=== PATIENT | female | born 1930 | race Caucasian/White ===

== ENCOUNTER → 2017-10-27 | Outpatient (CLI) | payer OTHER ==
[~2017-10-27] VITALS: Ht 167.6 cm; Wt 51.3 kg
[~2017-10-27] MED LIST: ALEVE220 M1 PO; ASPIRIN81 M2 PO; HYDROCODONE-AP1 EAC6 PO; MOBIC7.5 MG PO; TYLENOL325 MG PO; VITAMIN D1000 UNI2 PO; ZOCOR20 MG PO
--- NOTE | ~2017-10-27 | HPC ---
[facility] [place] [address] PAIN MANAGEMENT CONSULTATION Name: CAT CUENCA V Room #: REG MEGANAleida Klein#: [id number] Admission: 10/27/17 Attend Phys: Manohar Chiang DO Discharge: Date of : 30 Report #: [id number] THIS REPORT FOR: //name// CC: Manohar Godoy MD REFERRING PHYSICIAN: Jose Manuel Godoy MD HISTORY OF PRESENT ILLNESS: As you know, the patient is a very pleasant 86-year-old female who has been referred to our service for chronic low back pain and right shoulder pain. The patient was recently seen by Dr. Godoy on 10/14/2017, for evaluation for a known brain tumor. The patient indicates his brain tumor is a meningioma and was being monitored. During that conversation, the patient had indicated some concern of low back pain, she was having difficulty with her current pain physician, she was referred to our clinic to discuss options for treatment and to discuss opportunities of therapy that we may have available. The patient today indicates pain level of a 7/10, states her pain is exacerbated with lifting, climbing stairs, walking and sitting, improves with previous injection therapy. She indicates daily average of pain is anywhere from 0-8/10 depending on activity, 10/10 at its worse. She describes the pain as periodic and intermittent, describes the pain as cramping, aching, and sharp. She is able to localize pain directly over what appears to be the right sacroiliac joint and facet joints of the lumbar spine. She has been referred to our service to discuss options for treatment. PAST MEDICAL HISTORY: 1. Basal cell carcinoma. 2. Chronic low back pain. 3. Dyslipidemia. PAST SURGICAL HISTORY: 1. Cataract surgery. 2. Appendectomy. 3. Thyroidectomy. 4. Hysterectomy. SOCIAL HISTORY: The patient denies tobacco use. Denies IV or illicit drug use. She is retired. She is . She has 1 son who is present in room today. She is a retired nurse by [employer] ALLERGIES: No known drug allergies. CURRENT MEDICATIONS: Hydrocodone/acetaminophen 5/325 one tab every 4 hours p.r.n. for pain, naproxen sodium 220 mg every 8 hours, aspirin 81 mg per day, cholecalciferol 1000 units per day, simvastatin 20 mg per day. [address] [address] PAIN MANAGEMENT CONSULTATION Name: CAT CUENCA Juana Room #: REG DEMIAN Klein#: [id number] Admission: 10/27/17 Attend Phys: Manohar Chiang DO Discharge: Date of : 30 Report #: [id number] IMAGING: MRI lumbar spine obtained on 10/01/2017, shows moderate intervertebral disk degenerative changes, small posterior disk protrusion at L1-L2, no significant central canal or neural foraminal stenosis, mild bilateral facet arthrosis. L2-L3, severe intervertebral disk changes, small posterior disk protrusion, no significant central canal or neural foraminal stenosis, small anterior osteophytes seen at this level secondary to degenerative endplate changes. L3-L4, severe intervertebral disk degenerative changes, mild bilateral facet arthrosis, mild central canal stenosis, no significant neural foraminal stenosis. There are degenerative changes of facet joints noted at this level. L4-L5, severe intervertebral disk changes, partial fusion across the right lateral area secondary to osteophyte formation, no significant disk disease, no spinal canal stenosis, mild bilateral facet arthrosis. L5-S1, small posterior disk bulge, mild bilateral facet arthrosis. No significant central canal or neural foraminal stenosis. PHYSICAL EXAMINATION: VITAL SIGNS: Blood pressure 146/63, pulse 70, respiratory rate 12 and unlabored, the patient is 100% on room air, height 5 feet 6 inches tall, weight 113 pounds, and BMI calculated 18.2. GENERAL: Well-developed, well-nourished, well-hydrated, thin 86-year-old female, appears her stated age, she is placing current pain score at 7/10. HEENT: Normocephalic, atraumatic. Pupils are equal, round, and reactive to light. Extraocular muscles are intact. NEUROLOGIC: Speech is normal for patient. She is deemed an excellent historian. LUNGS: Clear. No wheezing, rhonchi, or rales. CARDIOVASCULAR: Regular. No appreciable gallop. No rub. ABDOMEN: Soft, nontender, and nondistended. Normoactive bowel sounds. EXTREMITIES: Show no clubbing, no cyanosis, and no edema. MUSCULOSKELETAL: Lower extremity strength appears equal and symmetrical 5/5, intact to light touch from L1 through S2 dermatomes. Gait is normal. Stance is forward flexed lumbar spine, there is noted kyphosis and mild scoliosis. There is palpatory tenderness over the paraspinal musculature of lower lumbar spine, no spinous process tenderness. Deep palpation over the SI joint on the right causes intensification of pain with radiation to the patient's typical distribution of symptoms. Seated straight leg raising negative. Supine straight leg raising negative. Becka's test is positive only for SI joint dysfunction on the right, negative left. Ankle clonus negative. Babinski is negative. ASSESSMENT: 1. Right sacroiliac joint dysfunction. 2. 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 3. Myofascial pain. 4. Chronic left shoulder pain. 5. Chronic intractable pain. [facility] [address] [place] [address] PAIN MANAGEMENT CONSULTATION Name: CAT CUENCA V Room #: REG DEMIAN Klein#: [id number] Admission: 10/27/17 Attend Phys: Manohar Chiang DO Discharge: Date of : 30 Report #: [id number] PLAN: 1. Based on today's physical exam, history the patient was provided, the description the patient uses in regards to pain as well as the location of symptoms, likely source of the patient's pain is the right sacroiliac joint. Deep palpation of this area causes the patient's typical pain distribution and intensity. This is also confirmed with a Becka's test, which shows no intrinsic right hip pathology, but does show SI joint dysfunction and pain generated from the area. We discussed with the patient she also suffers from facet arthropathy of the lower lumbar spine, it is fairly profound at the L3-L4 and L4-L5 level and may be contributing some to her axial back pain, but the main generator today appears to be the SI joint. We also discussed that the patient has periodic bilateral lower extremity cramping, which may be due to her spinal stenosis, though the MRI shows only mild stenosis, which is pretty impressive in an 86-year-old female. We discussed with the patient treatment options for SI joint dysfunction today as this appears to be the main pain generator. We discussed physical therapy, stretching exercise, core strengthening, we discussed medication management with addition of a more consistent nonsteroidal anti-inflammatory dosing, we discussed SI joint injections as a treatment option, and we discussed surgical fusion of the joint. After reviewing risks and benefits of all proposed treatment options, the patient chose to begin with the SI joint injection on the right. 2. 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 Apprehension test is negative, I do not perceive any labral issues in the right shoulder or left shoulder. We would recommend conservative medication management for this. We discussed the possibility of adding topical agents such as Voltaren gel or Pennsaid, we did not have samples of this medication today and the cost of this medication can be quite high. I would recommend the patient start with the generic nonsteroidal anti-inflammatory, determine if efficacy is noted with this medication. The patient was amenable, she was advised of the risks with a nonsteroidal anti-inflammatory, states she did wish to proceed with a trial. 3. The patient was provided a prescription of Meloxicam 7.5 mg 1 tab p.o. b.i.d., I have given the patient #60 tablets, 2 refills. She is to watch for dyspepsia, worsening of blood pressure, lower extremity edema with use of the medication. If any side effects that are concerning to the patient, she is to contact the clinic after discontinuing its use. 4. We will see the patient back in followup visit in approximately 3 weeks. At that time, we will discuss her ongoing shoulder pain and also to determine the efficacy of today's injection and determine if repeating the injection would be of benefit. 5. We wish to thank Dr. Godoy for the referral of the patient to our clinic. We will keep you apprised of her response to treatment as we address her back pain issues. Again, we wish to thank you for the opportunity to see the patient in consultation. [facility] [address] [place] [address] PAIN MANAGEMENT CONSULTATION Name: CAT CUENCA V Room #: REG DEMIAN Klein#: [id number] Admission: 10/27/17 Attend Phys: Manohar NguyenKeagan Андрей, Discharge: Date of : 30 Report #: [id number] PROCEDURE NOTE DESCRIPTION OF PROCEDURE: Right sacroiliac joint injection under fluoroscopic guidance. This is the first procedure of the first series that the patient is undergoing. After obtaining written consent, the patient was taken back to the fluoroscopy suite and placed in a prone position with a pillow under the pelvis to decrease the lumbar lordosis. The skin of the gluteal-sacral area overlying the right sacroiliac joint was prepped and draped in an aseptic fashion. A medial to lateral oblique projection allowed separation of the anterior and posterior branches of the joint space. The skin and subcutaneous tissue overlying the target site of injection was anesthetized using 3 mL of 1% lidocaine. A 22-gauge 3-1/2-inch needle with a bent tip was directed into the inferior aspect of the sacroiliac joint using a posterior approach. A "giving way" at the needle hub was noted once the dorsal sacroiliac and interosseous ligaments were engaged. After negative aspiration for heme, a total of 0.4 mL of Omnipaque was injected, outlining the coin-shaped inferior recess of the joint. Provocation responses consisting of intense buttock pain were negative. After negative aspiration for heme, 3 mL of a solution containing 1 mL 40 mg per mL, 40 mg total triamcinolone, 2 mL of bupivacaine 0.5% was slowly injected. The needle was then retracted approximately long-term and the needle track was flushed with 1 mL of 1% lidocaine. Needle was then removed. A sterile bandage was placed over the injection site. There were no new sensory deficits present in the lower extremities. The heart rate, pulse oximetry and blood pressure were continuously monitored after the procedure. There were no apparent complications. The patient tolerated the procedure well and was carefully escorted to the recovery room in stable condition. The VAS was 7/10 before the procedure and 4/10 ten minutes after the procedure. After meeting discharge criteria, the patient was discharged home. <ELECTRONICALLY SIGNED> By: Manohar Chiang DO 10/28/17 0739 [id number] Manohar Chiang DO /nt
[2017-10-27 09:53] VITALS: BP 146/63
== END | disposition home or self-care (01) ==
LOC: PAIN 07:04
DX: M53.3 Sacrococcygeal disorders, not elsewhere classified (principal); M12.88 Other specific arthropathies, not elsewhere classified, other specified site; M79.1 Myalgia; M25.512 Pain in left shoulder; G89.29 Other chronic pain; Z79.891 Long term (current) use of opiate analgesic; Z79.82 Long term (current) use of aspirin; Z79.899 Other long term (current) drug therapy; Z90.49 Acquired absence of other specified parts of digestive tract; Z90.710 Acquired absence of both cervix and uterus; Z98.890 Other specified postprocedural states; Z98.49 Cataract extraction status, unspecified eye; E78.5 Hyperlipidemia, unspecified; Z85.828 Personal history of other malignant neoplasm of skin

== ENCOUNTER → 2017-11-17 | Outpatient (CLI) | payer OTHER ==
[~2017-11-17] VITALS: Ht 167.6 cm; Wt 50.3 kg
--- NOTE | ~2017-11-17 | HPC ---
[facility] [place] [address] PAIN MANAGEMENT CONSULTATION Name: CAT CUENCA V Room #: REG [facility] Magen.#: [id number] Admission: 11/17/17 Attend Phys: Jeffery Chiang DO Discharge: Date of : 30 Report #: [id number] THIS REPORT FOR: //name// CC: JEFFERY Richard MD DATE OF SERVICE: 11/17/2017 CHIEF COMPLAINT: Right low back and buttock pain. HISTORY OF PRESENT ILLNESS: As you know, the patient is a very pleasant 86-year-old female who returns today in followup visit indicating good efficacy with the SI joint injection provided at last visit. She reports about 50% improvement in overall pain. Despite this 50% improvement, the patient is reporting pain level of 6/10 today. She returns per the request of her neurosurgeon to undergo the second in series of right SI joint injections in hopes of improving pain further. The patient denies any changes in medical history since our last visit. She is not on any blood thinners concerning for this procedure today. ALLERGIES: No known drug allergies. CURRENT MEDICATIONS: Meloxicam, hydrocodone, naproxen, aspirin, cyanocobalamin, simvastatin. SOCIAL HISTORY: The patient denies tobacco, denies IV or illicit drug use. She is retired. She is unaccompanied today. PHYSICAL EXAMINATION: VITAL SIGNS: Blood pressure 138/63, pulse 71, respiratory rate 14 and unlabored. The patient is 99% on room air. Height 5 feet 6 inches tall, weight 110.8 pounds, BMI calculated 17.9. GENERAL: Well-developed, well-nourished, well-hydrated, thin, 86-year-old female appearing her stated age. Pain is rated around 6/10. HEENT: Normocephalic, atraumatic. Pupils equal, round, reactive to light. EXTREMITIES: Show no clubbing, no cyanosis, no edema. MUSCULOSKELETAL: Lower extremity strength is symmetrical 5/5, intact to light touch from L1 through S2 dermatomes. Gait appears normal, stance slightly forward flexed lumbar spine. There is deep palpation tenderness over the SI joint on the right compared to left. ASSESSMENT: 1. Right sacroiliac joint dysfunction. 2. 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 [address] [address] PAIN MANAGEMENT CONSULTATION Name: CAT CUENCA V Room #: REG DEMIAN Klein#: [id number] Admission: 11/17/17 Attend Phys: Jeffery Chiang DO Discharge: Date of : 30 Report #: [id number] 3. Myofascial pain. 4. Chronic intractable pain. PLAN: 1. The patient returns today in followup visit per the request of her neurosurgeon, Dr. Jose Manuel Godoy to undergo the 2nd SI joint injections on the right side. The patient received good benefit, about 50% improvement in overall pain with this injection. She has returned today hoping to see similar improvement today. She has been advised risks and benefits of the procedure, states she understood and wished to proceed. 2. We will see the patient back in followup visit on an as needed basis. We have requested the patient return to see Dr. Godoy in regards to potential surgical options depending on the efficacy of today's second in the series of SI joint injections. The patient will make the appointment at her earliest convenience. 3. We will see the patient back in followup visit for future interventional treatments as requested. PROCEDURE NOTE DESCRIPTION OF PROCEDURE: Right sacroiliac joint injection under fluoroscopic guidance. This is the second procedure of the first series that the patient is undergoing. After obtaining written consent, the patient was taken back to the fluoroscopy suite and placed in a prone position with a pillow under the pelvis to decrease the lumbar lordosis. The skin of the gluteal-sacral area overlying the right sacroiliac joint was prepped and draped in an aseptic fashion. A medial to lateral oblique projection allowed separation of the anterior and posterior branches of the joint space. The skin and subcutaneous tissue overlying the target site of injection was anesthetized using 3 mL of 1% lidocaine. A 22-gauge, 3-1/2 inch needle with a bent tip was directed into the inferior aspect of the sacroiliac joint using a posterior approach. A ____ giving way ____ at the needle hub was noted once the dorsal sacroiliac and interosseous ligaments were engaged. After negative aspiration for heme, a total of 0.3 mL of Omnipaque was injected, outlining the coin-shaped inferior recess of the joint. Provocation responses consisting of intense buttock pain were negative. After negative aspiration for heme, 3 mL of a solution containing 1 mL 40 mg total triamcinolone, 2 mL of bupivacaine 0.5% was slowly injected. The needle was then retracted approximately chcf and the needle track was flushed with 1 mL of lidocaine 1%. Needle was then removed. A sterile bandage was placed over the injection site. There were no new sensory deficits present in the lower extremities. The heart rate, pulse oximetry and blood pressure were continuously monitored [address] [address] PAIN MANAGEMENT CONSULTATION Name: CAT CUENCA V Room #: REG DEMIAN Klein#: [id number] Admission: 11/17/17 Attend Phys: Jeffery Chiang DO Discharge: Date of : 30 Report #: [id number] after the procedure. There were no apparent complications. The patient tolerated the procedure well and was carefully escorted to the recovery room in stable condition. The VAS was 6/10 before the procedure and 0/10 ten minutes after the procedure. After meeting discharge criteria, the patient was discharged home. <ELECTRONICALLY SIGNED> By: Jeffery Chiang DO 11/25/1702 1152 [id number] Jeffery Chiang DO /nt
[2017-11-17 08:59] VITALS: BP 138/63
== END | disposition home or self-care (01) ==
LOC: PAIN 06:52
DX: M53.3 Sacrococcygeal disorders, not elsewhere classified (principal); M46.96 Unspecified inflammatory spondylopathy, lumbar region; M79.1 Myalgia; G89.29 Other chronic pain; Z79.82 Long term (current) use of aspirin; Z79.891 Long term (current) use of opiate analgesic; Z79.899 Other long term (current) drug therapy

== ENCOUNTER → 2018-08-31 | Outpatient (CLI) | payer OTHER ==
[~2018-08-31] VITALS: Ht 167.6 cm; Wt 52.5 kg
--- NOTE | ~2018-08-31 | HPC ---
[address] [address] PAIN MANAGEMENT CONSULTATION Name: CAT CUENCA V Room #: REG MEGANAleida Klein#: [id number] Admission: 08/31/18 Attend Phys: Manohar Chiang DO Discharge: Date of : 30 Report #: [id number] THIS REPORT FOR: //name// CC: Manohar Godoy M.D. DATE OF SERVICE: 08/31/2018 CHIEF COMPLAINT: Low back pain, right lower extremity pain with paresthesias. HISTORY OF PRESENT ILLNESS: As you know, the patient is a very pleasant 87-year-old female returning today in followup visit, requesting to undergo lumbar epidural injection under fluoroscopic guidance to address low back pain and right lower extremity pain with paresthesias. The patient places pain score today at 1-10/10; states pain begins in low back, radiates all the way down the right leg to her foot. She was originally referred to our service to discuss epidural injections. She has done very well with SI joint injections to address sacroiliac joint dysfunction, but now is experiencing more radicular symptoms. She returns today to trial an epidural injection. She denies injury, trauma or any changes in medical history since our last visit. ALLERGIES: No known drug allergies. CURRENT MEDICATIONS: Acetaminophen, meloxicam, hydrocodone, aspirin, cholecalciferol, simvastatin. SOCIAL HISTORY: The patient denies tobacco, IV or illicit drug use. She is retired, retired years ago, unaccompanied today. PQRS: The patient has known osteoarthritis of the low back, bilateral hips, bilateral knees. No rheumatoid arthritis. She is placing pain intensity today 1-4/10. She is a fall risk, but has not had a fall in the last 3 months. She is using a roller walker for ambulation. She is not on blood thinners. She is not treated for hypertension. She is not on opioids. She has a low opioid addiction potential. Pain impact score 35/70, moderate interference with daily activities secondary to pain. PHYSICAL EXAMINATION: VITAL SIGNS: Blood pressure 137/74, pulse 88, respiratory rate 18 and unlabored. The patient is 100% on room air. Height 5 feet 6 inches tall, weight 115.8 pounds, BMI calculated 18.7. GENERAL: Well-developed, well-nourished, well-hydrated, thin 87-year-old female, appears stated age, placing current pain score anywhere from 1-4/10. HEENT: Normocephalic, atraumatic. Pupils equal, round, reactive to light. Speech is fluent for patient. [address] [address] PAIN MANAGEMENT CONSULTATION Name: CAT CUENCA V Room #: REG DEMIAN Klein#: [id number] Admission: 08/31/18 Attend Phys: Manohar Chiang DO Discharge: Date of : 30 Report #: [id number] EXTREMITIES: Show no clubbing, no cyanosis, no edema. MUSCULOSKELETAL: Lower extremity strength 5/5. Remains intact to light touch from L1 through S2 dermatomes. Seated straight leg raising negative. Supine straight leg raising positive. Gait slightly antalgic favoring right lower extremity over left. ASSESSMENT: 1. Chronic low back pain. 2. Bilateral sacroiliac joint dysfunction. 3. 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 4. Degeneration of lumbar spine. 5. Chronic intractable pain. PLAN: 1. The patient returns today in followup visit with low back pain and right lower extremity pain radiating all the way to the foot. This appears to be more radicular in origin. The patient was originally referred to our service by her neurosurgeon, Dr. Jose Manuel Godoy for evaluation and treatment for symptoms of the SI joint and chronic lumbar radiculopathy. We have successfully completed the SI joint injections with good efficacy and prolonged improvement. She is now experiencing more radicular component. We have consented and will perform a lumbar epidural injection under fluoroscopic guidance. The patient was advised of risks and benefits, states understood and wished to proceed. 2. No medication changes made at today's visit. The patient will continue current medical therapy as previously prescribed. 3. We will see the patient back in followup visit on an as needed basis for possible next in the series of lumbar epidural injections. PROCEDURE NOTE DESCRIPTION OF PROCEDURE: L5-S1 paramedian epidural steroid injection under fluoroscopic guidance. This is the first procedure of the first series that the patient is undergoing. After obtaining written consent, the patient was taken back to the fluoroscopy suite, placed in a prone position with pillow under the abdomen to decrease lumbar lordosis. The skin overlying the lumbosacral area was then prepped and draped in aseptic fashion. The L5-S1 vertebral interspace was then identified by AP fluoroscopy. The skin and subcutaneous tissue overlying the target site of injection was anesthetized with 3 mL 1% lidocaine. A 20-gauge, 3-1/2-inch Tuohy needle was then advanced under fluoroscopic guidance towards the epidural space using a paramedian approach. The epidural space was identified using loss of resistance to air technique. After negative aspiration for heme or cerebrospinal fluid, a total of 1 mL of Omnipaque was [address] [address] PAIN MANAGEMENT CONSULTATION Name: CAT CUENCA V Room #: [facility]#: [id number] Admission: 08/31/18 Attend Phys: Manohar Chiang DO Discharge: Date of : 30 Report #: [id number] injected. A lumbar epidurogram was confirmed using both AP and lateral fluoroscopy. After negative aspiration for heme or cerebrospinal fluid, 5 mL of a solution containing 2 mL 40 mg per mL 80 mg total triamcinolone, 3 mL lidocaine 1% was injected in increments. Contrast spread was noted posterior epidural space. The needle was then retracted approximately half way and needle tract flushed with 1 mL of 1% lidocaine. Needle was then removed. There were no apparent sensory or motor deficits in the lower extremity following the procedure. A sterile bandage was placed over the injection site. The heart rate, pulse, oximetry and blood pressure were continuously monitored after the procedure. There were no apparent complications. The patient tolerated the procedure well and was carefully escorted to the recovery room in stable condition. There were no apparent complications. After meeting discharge criteria, the patient was then discharged home. By: [id number] Manohar Chiang DO /nt
[2018-08-31 09:21] VITALS: BP 137/74
== END | disposition home or self-care (01) ==
LOC: PAIN 06:58
DX: M51.16 Intervertebral disc disorders with radiculopathy, lumbar region (principal); G89.29 Other chronic pain; M53.3 Sacrococcygeal disorders, not elsewhere classified; M17.0 Bilateral primary osteoarthritis of knee; M16.0 Bilateral primary osteoarthritis of hip; I10 Essential (primary) hypertension; Z79.82 Long term (current) use of aspirin; Z79.899 Other long term (current) drug therapy

== ENCOUNTER → 2020-05-09 | Outpatient (CLI) | payer OTHER ==
[~2020-05-09] VITALS: Ht 167.6 cm; Wt 57.3 kg
--- NOTE | ~2020-05-09 | HPC ---
[address] [address] PAIN MANAGEMENT CONSULTATION Name: CAT CUENCA V Room #: REG DEMIAN KaylaJacqueline.#: [id number] Admission: 05/09/20 Attend Phys: Manohar Chiang DO Discharge: Date of : 30 Report #: [id number] THIS REPORT FOR: cc: Manohar Leonardo MD, James A. MD Johnson, James E. DO ~ CC: Manohar Godoy MD DATE OF SERVICE: 05/09/2020 REFERRING PHYSICIAN: Jose Mnauel Godoy M.D. CHIEF COMPLAINT: Low back pain, right lower extremity pain and paresthesias. HISTORY OF PRESENT ILLNESS: As you know, the patient is a very pleasant 89-year-old female who returns today in followup visit to undergo next in the series of lumbar epidural injections under fluoroscopic guidance. The patient places current pain score around 5/10. She indicates pain begins in the low back, radiates down the left leg. She states pain is chronic in nature, aching, intermittent in its presentation, exacerbated with certain movements, improves with rest and relaxation. The patient underwent the most recent epidural injection in 08/2018 with good efficacy, returning today in followup visit with recurrent symptoms. She denies injury or trauma. She returns to undergo next in the series of epidural injections in hopes of building on that success. ALLERGIES: No known drug allergies. CURRENT MEDICATIONS: Naproxen sodium 220 mg once a day, aspirin 81 mg per day. SOCIAL HISTORY: The patient denies tobacco, alcohol, IV or illicit drug use. She is retired, retired years ago, unaccompanied today. IMAGING: No new imaging available. PQRS: The patient has known arthritic changes of the lumbar spine, bilateral hips and bilateral knees. No rheumatoid arthritis. Pain intensity today is rated around 5/10. She is a fall risk, but has not had a fall in last 3 months. She does use ambulatory devices for balance. She is not on blood thinners, nor she is treated for hypertension. She is not on chronic opioids, has a low opiate addiction potential. Pain impact today 20/70 indicating mild interference of daily activities secondary to pain. PHYSICAL EXAMINATION: VITAL SIGNS: Blood pressure 142/85, pulse 92, respiratory rate [address] [facility] [address] [place] [address] PAIN MANAGEMENT CONSULTATION Name: CAT CUENCA V Room #: [facility]#: [id number] Admission: 05/09/20 Attend Phys: Manohar Chiang DO Discharge: Date of : 30 Report #: [id number] unlabored. The patient is 98% on room air. Height 5 feet 6 inches tall, weight 126.4 pounds, BMI calculated 20.4. GENERAL: Well-developed, well-nourished, well-hydrated 89-year-old female appearing stated age, pain is rated today around 5/10. HEENT: Normocephalic, atraumatic. Pupils are equal and round. NEUROLOGIC: Speech is fluent. The patient deemed a good historian. EXTREMITIES: Show no clubbing, no cyanosis, no edema. MUSCULOSKELETAL: Lower extremity strength is symmetrical again today 5/5. Muscle bulk and tone is symmetrical in comparing left lower extremity to right. Seated straight leg raising negative. Supine straight leg raising positive on the left. Becka's test is negative. Modified Gaenslen's positive for axial low back pain. Ankle clonus negative. Babinski is negative. ASSESSMENT: 1. Lumbar radiculopathy. 2. 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 4. Chronic intractable pain. PLAN: 1. The patient returns today in followup visit having noted excellent benefit with previous epidural injection. She returns today hoping to undergo next in the series of epidural injections to address recurrent pain that she now rates at 5/10. She denies injury or trauma that may have led to symptom recurrence. She has returned today per the request of the referring physician to undergo next in the series of lumbar epidural injections in hopes of improving pain. The patient has been advised of the risks and the benefits of lumbar epidural injection. These risks include but are not necessarily limited to bleeding, bruising, infection, worsening pain, no relief of pain, also risk of temporary or permanent muscle weakness, temporary or permanent nerve damage, possible paralysis and . The patient states understood and wished to proceed. 2. No medication changes made at today's visit. The patient will continue current medical therapy as previously prescribed. 3. The patient will return to our clinic on an as needed basis for possible next in the series of epidural injections. PROCEDURE NOTE DESCRIPTION OF PROCEDURE: L5-S1 left paramedian epidural steroid injection under fluoroscopic guidance. This is the second procedure of the first series that the patient is undergoing. After obtaining written consent, the patient was taken back to the fluoroscopy suite, placed in a prone position with pillow under the abdomen to decrease lumbar lordosis. The skin overlying the lumbosacral area was then prepped and [address] [address] PAIN MANAGEMENT CONSULTATION Name: CAT CUENCA V Room #: REG DEMIAN Us#: [id number] Admission: 05/09/20 Attend Phys: Manohar Chiang DO Discharge: Date of : 30 Report #: [id number] draped in aseptic fashion. The L5-S1 vertebral interspace was then identified by AP fluoroscopy. The skin and subcutaneous tissue overlying the target site of injection was anesthetized with 3 mL 1% lidocaine. A 20 gauge 2.5 inch Tuohy needle was then advanced under fluoroscopic guidance towards the epidural space using a left paramedian approach. The epidural space was identified using loss of resistance to air technique. After negative aspiration for heme or cerebrospinal fluid, a total of 1 mL of Omnipaque was injected. A lumbar epidurogram was confirmed using both AP and lateral fluoroscopy. After negative aspiration for heme or cerebrospinal fluid, 5 mL of solution containing 2 mL 40 mg per mL 80 mg total triamcinolone along with 3 mL lidocaine 1% was injected in increments. Contrast spread was noted post epidural space. The needle was then retracted approximately half way and needle tract flushed with 1 mL of 1% lidocaine. Needle was then removed. There were no apparent sensory or motor deficits in the lower extremity following the procedure. A sterile bandage was placed over the injection site. The heart rate, pulse, oximetry and blood pressure were continuously monitored after the procedure. There were no complications. The patient tolerated the procedure well and was carefully escorted to the recovery room in stable condition. There were no apparent complications. After meeting discharge criteria, the patient was then discharged home. By: [id number] Manohar Chiang DO /nt
[2020-05-09 13:20] VITALS: BP 142/85
[2020-05-09 13:22] VITALS: BP 142/85
--- NOTE | 2020-05-09 13:38 | NUR ---
Pain Clinic Assessment: 1. History of Osteoarthritis: DENIES History of Rheumatoid Arthritis: DENIES 2. Height: 5 ft. 6 in. 167.6 cm. Weight: 126.4 lb. oz. 57.335 kg. Patient's BMI: 20.4 3. Vital Signs: BP: 142/85 Pulse: 92 Resp: 16 Temp: 02 Sat: 98 ECG Mon: 4. Pain Intensity: 0 NOW 5 MAX 5. Fall Risk: Dizziness: N Needs help standing or walking: Y Fallen in the last 3 months: N Fall risk comments: 6. Patient on Blood Thinner: None 7. History of Hypertension: N 8. Opioid Therapy greater than 6 weeks: N Opiate Contract Signed: 9. Risk Assessment Tool Provided: 10. Functional Assessment Tool: 11. Recreational Drug Use: Never Drug Type: Tobacco Use: Never Smoker Tobacco Type: Amount or Packs/day: How Many Years: Alcohol Use: No Frequency: Quant:
== END | disposition home or self-care (01) ==
LOC: PAIN 07:03
PROVIDERS: ATTEND Anesthesiology Pain Medicine
DX: M51.16 Intervertebral disc disorders with radiculopathy, lumbar region (principal); M47.26 Other spondylosis with radiculopathy, lumbar region; G89.29 Other chronic pain; Z98.890 Other specified postprocedural states; Z79.899 Other long term (current) drug therapy; Z88.0 Allergy status to penicillin